=== PATIENT | male | born 1975 ===

== ENCOUNTER → 2019-11-22 | Outpatient (CLI) | payer BC ==
--- NOTE | 2019-11-22 09:00 | RAD ---
Left shoulder 4 views INDICATION: Shoulder pain IMPRESSION: Healed overriding depressed fracture mid left clavicle. Mature osseous bridging. No fracture or dislocation left shoulder. No advanced arthrosis. Electronically signed by: Valdo Sebastian MD 11/22/2019 8:58 AM CDT
== END ==
LOC: RAD 07:39
PROVIDERS: ATTEND Orthopaedic Surgery
DX: S42.002A Fracture of unspecified part of left clavicle, initial encounter for closed fracture (principal)